=== PATIENT | female | born 1975 | race Caucasian/White ===

== ENCOUNTER 2016-10-27 11:37 | Emergency (ER) | payer BC ==
--- NOTE | 2016-10-27 12:12 | ER Document Report ---
ED Medical Screen (RME) - General Stated Complaint: RIGHT HAND/ARM PAIN Notes: 41 yo female c/o pain and numbness to right hand up to right shoulder. right hand dominant. seen by ortho on Tuesday. scheduled for MRI and nerve conduction study. prescribed Tramadol, but no relief. Ortho - [facility]. pt has hx/o tennis elbow. had cortisone shot several months ago TRAVEL OUTSIDE OF THE [place] IN LAST 30 DAYS: No - Related Data Allergies/Adverse Reactions: ibuprofen [Ibuprofen] Allergy (Intermediate, Verified 10/27/16 12:09) Hives Past Medical History Neurological Medical History: Reports: Hx Migraine - Immunizations Hx Diphtheria, Pertussis, Tetanus Vaccination: Yes
--- NOTE | 2016-10-27 15:34 | ER Document Report ---
ED General - General Time seen by provider: 15:25 Mode of Arrival: Ambulatory Information source: Patient TRAVEL OUTSIDE OF THE [place] IN LAST 30 DAYS: No - HPI Patient complains to provider of: Pinched nerve Onset: Other - 1 month ago Associated symptoms: Other - see above - General Chief Complaint: Hand Pain Stated Complaint: RIGHT HAND/ARM PAIN Notes: 41 year old female presents to the ED complaining of a "pinched nerve" and associated intermittent numbness to the right hand, fingers, and arm. Patient reports that she also has right tennis elbow, but has not received treatment because of a possible interaction with an MRI scan. Patient is seeing Dr. Kenneth Leija, orthopedist, in [place], [place]. Patient was given medication 5 days ago , but states that it isn't working. Patient reports that her symptoms have worsened since starting the medication. Patient states that she is currently working to get an MRI scheduled. Patient states that she has not informed Dr. Leija that the medication is not working. (PEDRO PRADO) - Related Data Allergies/Adverse Reactions: ibuprofen [Ibuprofen] Allergy (Intermediate, Verified 10/27/16 12:09) Hives Home Medications: Current Home Medications Tramadol HCl 50 mg PO TID 10/27/16 [History] Past Medical History - General Information source: Patient - Social History Smoking Status: Never Smoker Chew tobacco use (# tins/day): No Frequency of alcohol use: None Drug Abuse: None Family History: Reviewed & Not Pertinent Patient has suicidal ideation: No Patient has homicidal ideation: No Neurological Medical History: Reports: Hx Migraine Renal/ Medical History: Denies: Hx Peritoneal Dialysis Past Surgical History: Reports: Hx Orthopedic Surgery - Immunizations Hx Diphtheria, Pertussis, Tetanus Vaccination: Yes Review of Systems - Review of Systems Constitutional: No symptoms reported EENT: No symptoms reported Cardiovascular: No symptoms reported Respiratory: No symptoms reported Gastrointestinal: No symptoms reported Genitourinary: No symptoms reported Female Genitourinary: No symptoms reported Musculoskeletal: No symptoms reported Skin: No symptoms reported Hematologic/Lymphatic: No symptoms reported Neurological/Psychological: See HPI, Numbness - right arm, hands, and fingers -: Yes All other systems reviewed and negative Physical Exam - General General appearance: Alert In distress: None - HEENT Head: Normocephalic, Atraumatic Eyes: Normal Extraocular movements intact: Yes Pupils: PERRL - Respiratory Respiratory status: No respiratory distress Breath sounds: Normal - Cardiovascular Rhythm: Regular Heart sounds: Normal auscultation - Abdominal Inspection: Normal - Back Back: Normal, Nontender - no midline cervical tenderness - Extremities General upper extremity: Normal inspection, Nontender - no tenderness to palpation of the right shoulder, humerus, elbow, forearm, or wrist. Distal pulse and sensation intact., Normal ROM General lower extremity: Normal inspection, Normal ROM - Neurological Neuro grossly intact: Yes Cognition: Normal Orientation: AAOx4 [place] Coma Scale Eye Opening: Spontaneous [place]rella Coma Scale Verbal: Oriented Estrella Coma Scale Motor: Obeys Commands Estrella Coma Scale Total: 15 Speech: Normal Sensory: Normal - negative tinel sign - Psychological Associated symptoms: Normal affect, Normal mood - Skin Skin Temperature: Warm Skin Moisture: Dry Skin Color: Normal Course - Re-evaluation Re-evalutation: 10/27/16 15:41 I personally performed the services described in the documentation, reviewed and edited the documentation which was dictated to my scribe in my presence, and it accurately records my words and actions. presents emergency Department with right hand finger numbness arm pain shoulder pain and neck pain. She has ongoing problems for which she sees Dr. KNOWLES [facility] or at the [facility]. She just saw them on Tuesday review her records show that she's been given Ultram diclofenac Flexeril I spoke with him personally in orthopedic [facility] they just saw on Tuesday they have an EMG and a MRI ordered they specifically do not want to give her narcotics at this point they have seen her multiple times she is to be on heavy narcotics in the past are not recommending that currently. Patient is requesting that on physical examination well-appearing nontoxic chronic in nature no acute traumatic injury infection pulse sensation motor intact no neurological deficits. At this point I spoke with her regards to management from the physician who is managing this who is the ortho [facility]. Any additional medications A to come for them explained this to her verbalizes understanding and is discharged to follow-up with them on the . (SAVITA CHAVEZ) Discharge - Discharge Clinical Impression: Arm paresthesia, left Arm pain Qualifiers: Laterality: right Qualified Code(s): M79.601 - Pain in right arm Condition: Stable Disposition: HOME, SELF-CARE Additional Instructions: You have been seen and evaluated for arm pain and right hand numbness and tingling consistent with paresthesias. You were seen by your orthopedic [facility] doctor on Tuesday and given Ultram, diclofenac, and Flexeril. They have ordered and are pending an EMG and MRI. I contacted them in regards to your medication not helping. They stated to continue the same regimen any other changes in medication need to be per them and they have an appointment for follow-up you on the if you are concerned directly about the management are want a different medication he can contact them directly return for increasing worsening or new symptoms Referrals: JESSICA COOK FNP [Primary Care Provider] - Follow up in 3-5 days (In 2-3 days and on 19 November as scheduled with eliseo gold) Scribe Documentation - Scribe Written by Kerwin:: Kerwin Allred, 10/27/2016 [id number] acting as scribe for :: Richard
== END 2016-10-27 15:53 | disposition home or self-care (01) ==
LOC: ER 11:37
DX: R20.0 Anesthesia of skin (principal); M79.601 Pain in right arm; M79.641 Pain in right hand
CPT/HCPCS: 99283

== ENCOUNTER → 2017-03-01 | Outpatient (CLI) | payer BC ==
--- NOTE | 2017-03-01 15:49 | RADIOLOGY REPORT (SQ) ---
EXAM DESCRIPTION: CT ABD/PELVIS NO ORAL OR IV COMPLETED DATE/TIME: 03/01/2017 2:32 pm REASON FOR STUDY: UTERAL STONE, UTI N20.1 CALCULUS OF URETER COMPARISON: CT abdomen pelvis 09/13/2010 TECHNIQUE: CT scan of the abdomen and pelvis performed without intravenous or oral contrast. Images reviewed with lung, soft tissue, and bone windows. Reconstructed coronal and sagittal MPR images revi ewed. All images stored on PACS. All CT scanners at this facility use dose modulation, iterative reconstruction, and/or weight based d osing when appropriate to reduce radiation dose to as low as reasonably achievable (ALARA). [facility]: Dose Right [facility]: CareDose [facility]: Dose Right [facility]: Teradose 4D [facility]: [employer] RADIATION DOSE: Up-to-date CT equipment and radiation dose reduction techniques were employed. CTDIv ol: 4.4 mGy. DLP: 226 mGy-cm.mGy. LIMITATIONS: None. FINDINGS: LOWER CHEST: No significant findings. No nodules or infiltrates. NON-CONTRASTED LIVER, SPLEEN, ADRENALS: Evaluation limited by lack of IV contrast. No identified sign ificant masses. Stable benign 1.3 cm cyst sub- diaphragmatic surface left lobe liver. PANCREAS: No masses. No peripancreatic inflammatory changes. GALLBLADDER: Surgically absent. RIGHT KIDNEY AND URETER: No suspicious masses. Assessment limited by lack of IV contrast. No signif icant calcifications. No hydronephrosis or hydroureter. LEFT KIDNEY AND URETER: No suspicious masses. Assessment limited by lack of IV contrast. 2 mm left midpole intrarenal nonobstructive stone on coronal image 57. No left ureteral calculi. No hydronep hrosis or hydroureter. AORTA AND RETROPERITONEUM: No aneurysm. No retroperitoneal masses or adenopathy. BOWEL AND PERITONEAL CAVITY: No obvious masses or inflammatory changes. No free fluid. APPENDIX: Normal, best shown on axial images 67-73 PELVIS, BLADDER, AND ABDOMINAL WALL:No abnormal masses. No free fluid. Bladder normal. Post hysterec carlos. Benign calcified pelvic phleboliths. BONES: No significant findings. OTHER: No other significant finding. IMPRESSION: No hydronephrosis or hydroureter. 2 mm left midpole intrarenal nonobstructive calculus. Post cholecystectomy Normal appendix TECHNICAL DOCUMENTATION: JOB ID: [id number] Quality ID # [id number]: Final reports with documentation of one or more dose reduction techniques (e.g., Au tomated exposure control, adjustment of the mA and/or kV according to patient size, use of iterative reconstruction technique) 2010 [employer]- All Rights Reserved
== END ==
LOC: RAD 13:54
PROVIDERS: ATTEND Urology
DX: N20.1 Calculus of ureter (principal); N39.0 Urinary tract infection, site not specified
CPT/HCPCS: 74176